=== PATIENT | female | born 1945 | race Asian ===

== ENCOUNTER 2019-11-14 22:11 | Emergency (ER) | payer MEDICARE, OTHER ==
[2019-11-14 22:20] VITALS: RESP 18; TEMP 97.7
[2019-11-14 23:21] LABS: Basophils % (A) 1 %; Eosinophils # (A) 0.2 k/uL (0-0.7); Eosinophils % (A) 6 %; HGB 12.8 gm/dL (11.4-16.0); Lymphocytes # (A) 1.5 k/uL (1.0-4.8); Lymphocytes % (A) 39 %; MCH 30.7 pg (25.0-35.0); MCHC 34.6 g/dL (31.0-37.0); MCV 88.6 fL (80.0-100.0); Mean Platelet Volume 7.2; Monocytes # (A) 0.2 k/uL (0-1.0); Monocytes % (A) 5 %; Neutrophils # (A) 1.9 k/uL (1.3-7.7); Neutrophils % (A) 47 %; Platelet Count 220 k/uL (150-450); RBC 4.18 m/uL (3.80-5.40); RDW 13.1 % (11.5-15.5); WBC 3.9 k/uL (3.8-10.6)
[2019-11-14 23:33] LABS: Albumin 4.7 g/dL (3.5-5.0); Calcium 9.5 mg/dL (8.4-10.2); Potassium 3.8 mmol/L (3.5-5.1); Total Bilirubin 0.4 mg/dL (0.2-1.3); Total Protein 7.5 g/dL (6.3-8.2)
--- NOTE | 2019-11-14 23:59 | XR ---
EXAMINATION TYPE: XR chest 2V DATE OF EXAM: 11/14/2019 COMPARISON: Heart and mediastinum are normal. Lungs are clear. Diaphragm is normal. Bony thorax is in tact. There is no pleural effusion or pneumothorax. HISTORY: High blood pressure TECHNIQUE: 2 views FINDINGS: Heart and mediastinum are within normal limits. Lungs are clear of infiltrate. Thoracic aor ta is atheromatous. There is no pleural effusion. Bony thorax is intact. IMPRESSION: No active cardiopulmonary disease. Normal heart.
--- NOTE | 2019-11-15 00:09 | ED ---
General Adult HPI - General Chief complaint: Recheck/Abnormal Lab/Rx Stated complaint: High BP Time Seen by Provider: 11/14/19 22:15 Source: patient, family Mode of arrival: ambulatory Limitations: no limitations - History of Present Illness Initial comments: Patient is a 74-year-old female past history of hypertension presents to emergency room transported high blood pressure. Patient states that she's been very anxious lately. 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 States that she has felt a tickle in the back of her throat. Denies cough or shortness of breath. Denies fevers or chills. States that she felt slightly dizzy earlier today and therefore took her blood pressure. He was noted to be high. States every time she goes in her doctor's office her blood pressure has been normal. She did see her doctor last week and her blood pressure was noted to be 105 systolic. She takes lisinopril hydrochlorothi azide. Denies missing any doses. No recent medication changes. Because of her elevated blood pressure tonight at 190 at home she did take a second lisinopril- hctz and came into the ER for evaluation. She denies any headaches or visual changes. No nausea or vomiting. Denies any unilateral numbness or weakness. No ripping or tearing sensation to her back. There are no other alleviating, precipitating or modifying factors - Related Data Allergies Allergy/AdvReac Type Severity Reaction Status Date / Time aspirin [From Percodan] Allergy Hallucinati Verified 11/14/19 22:21 ons gabapentin [From Neurontin] Allergy Unknown Verified 11/14/19 22:21 oxycodone [From Percodan] Allergy Hallucinati Verified 11/14/19 22:21 ons Review of Systems ROS Statement: Those systems with pertinent positive or pertinent negative responses have been documented in the HPI. ROS Other: All systems not noted in ROS Statement are negative. Past Medical History Past Medical History: Hypertension Additional Past Medical History / Comment(s): pre diabetes, duodenal ulcer, colon polyps pre cancerous History of Any Multi-Drug Resistant Organisms: None Reported Past Surgical History: Section, Cholecystectomy, Hysterectomy Past Psychological History: No Psychological Hx Reported Smoking Status: Never smoker Past Alcohol Use History: Occasional Past Drug Use History: None Reported General Exam Limitations: no limitations General appearance: alert, in no apparent distress Head exam: Present: atraumatic, normocephalic, normal inspection Eye exam: Present: normal appearance, PERRL, EOMI. Absent: scleral icterus, conjunctival injection, periorbital swelling ENT exam: Present: normal exam, mucous membranes moist Neck exam: Present: normal inspection. Absent: tenderness, meningismus, lymphadenopathy Respiratory exam: Present: normal lung sounds bilaterally. Absent: respiratory distress, wheezes, rales, rhonchi, stridor Cardiovascular Exam: Present: regular rate, normal rhythm, normal heart sounds. Absent: systolic murmur, diastolic murmur, rubs, gallop, clicks GI/Abdominal exam: Present: soft, normal bowel sounds. Absent: distended, tenderness, guarding, rebound, rigid Extremities exam: Present: normal inspection, full ROM, normal capillary refill. Absent: tenderness, pedal edema, joint swelling, calf tenderness Back exam: Present: normal inspection Neurological exam: Present: alert, oriented X3, CN II-XII intact Psychiatric exam: Present: normal affect, normal mood Skin exam: Present: warm, dry, intact, normal color. Absent: rash Course Vital Signs 11/14/19 11/15/19 22:14 00:21 Temperature 97.7 F Pulse Rate 100 83 Respiratory 18 18 Rate Blood Pressure 188/99 145/82 O2 Sat by Pulse 98 97 Oximetry EKG Findings - EKG Comments: EKG Findings:: EKG demonstrates a normal sinus rhythm with a ventricular rate of 84. NH interval 200. QRS 86. QTC of 465. No acute ST segment elevations or depressions concerning for ischemic changes Medical Decision Making - Medical Decision Making Upon arrival the patient is placed into room 4. A thorough history and physical exam was performed. 12-lead EKG was performed. Laboratory studies were conducted. She is sent for chest x-ray. Upon return results there discuss the patient. I did discuss diagnosis, differential treatment options. Patient blood pressures improved to 145/82 systolic. I did recommend that the patient keep a blood pressure log. Follow up with her primary care doctor within 2-4 days for blood pressure recheck. Continue taking her lisinopril once daily. Return to the emergency room for any new or worsening symptoms. Patient was in agreement treatment plan and she was discharged home in stable condition - Lab Data Result diagrams: 11/14/19 23:08 11/14/19 23:08 Lab Results 11/14/19 11/14/19 11/14/19 Range/Units 23:08 23:08 23:08 WBC 3.9 (3.8-10.6) k/uL RBC 4.18 (3.80-5.40) m/uL Hgb 12.8 (11.4-16.0) gm/dL Hct 37.0 (34.0-46.0) % MCV 88.6 (80.0-100.0) fL MCH 30.7 (25.0-35.0) pg MCHC 34.6 (31.0-37.0) g/dL RDW 13.1 (11.5-15.5) % Plt Count 220 (150-450) k/uL Neutrophils % 47 % Lymphocytes % 39 % Monocytes % 5 % Eosinophils % 6 % Basophils % 1 % Neutrophils # 1.9 (1.3-7.7) k/uL Lymphocytes # 1.5 (1.0-4.8) k/uL Monocytes # 0.2 (0-1.0) k/uL Eosinophils # 0.2 (0-0.7) k/uL Basophils # 0.0 (0-0.2) k/uL Sodium 139 (137-145) mmol/L Potassium 3.8 (3.5-5.1) mmol/L Chloride 106 (98-107) mmol/L Carbon Dioxide 23 (22-30) mmol/L Anion Gap 10 mmol/L BUN 19 H (7-17) mg/dL Creatinine 0.77 (0.52-1.04) mg/dL Est GFR (CKD-EPI)AfAm 89 (>60 ml/min/1.73 sqM) Est GFR (CKD-EPI)NonAf 77 (>60 ml/min/1.73 sqM) Glucose 103 H (74-99) mg/dL Calcium 9.5 (8.4-10.2) mg/dL Total Bilirubin 0.4 (0.2-1.3) mg/dL AST 36 (14-36) U/L ALT 23 (4-34) U/L Alkaline Phosphatase 54 (38-126) U/L Troponin I <0.012 (0.000-0.034) ng/mL Total Protein 7.5 (6.3-8.2) g/dL Albumin 4.7 (3.5-5.0) g/dL Disposition Clinical Impression: High blood pressure Disposition: HOME SELF-CARE Condition: Stable Additional Instructions: Please call and make an appointment with her primary care doctor on Friday or Friday for a blood pressure recheck. Keep a log of your blood pressure. Return to the department for any new or worsening symptoms Is patient prescribed a controlled substance at d/c from ED?: No Referrals: Nonstaff,Physician [Primary Care Provider] - 1-2 days Time of Disposition: 00:08
[2019-11-15 00:21] VITALS: BP 145/82; PULSE 83
== END 2019-11-15 00:27 | disposition home or self-care (01) ==
LOC: EC 22:11
DX: R03.0 Elevated blood-pressure reading, without diagnosis of hypertension (principal); R42 Dizziness and giddiness; R73.03 Prediabetes; Z88.6 Allergy status to analgesic agent; Z88.8 Allergy status to other drugs, medicaments and biological substances; Z88.5 Allergy status to narcotic agent
CPT/HCPCS: 36415; 71046; 80053; 84484; 85025; 93005; 99284